=== PATIENT | male | born 1990 | race Two or more races ===

== ENCOUNTER 2024-06-28 13:05 | Emergency (ER) | payer MEDICAID ==
[~2024-06-28] VITALS: Ht 175.3 cm; Wt 77.3 kg
[2024-06-28 13:25] VITALS: TEMP 98.1
[2024-06-28 16:21] VITALS: BP 129/83
[2024-06-28 16:55] VITALS: PULSE 102; RESP 18; O2SAT 98
== END 2024-06-28 17:53 | disposition home or self-care (01) ==
LOC: EMS 13:05
DX: F10.129 Alcohol abuse with intoxication, unspecified (principal); Y90.9 Presence of alcohol in blood, level not specified
CPT/HCPCS: 99283; Z7502

== ENCOUNTER 2025-07-16 22:26 | Emergency (ER) | payer MEDICAID, OTHER ==
[~2025-07-16] VITALS: Ht 172.7 cm; Wt 77.3 kg
[2025-07-16 22:48] VITALS: TEMP 97.7
[2025-07-16 23:27] LABS: PLATELET COUNT (AUTO) 456 K/uL (150-450); RED BLOOD CELL COUNT(AUTO) 4.64 MIL/uL (4.50-5.90); RED CELL DISTRIBUTION WIDTH 17.5 % (11.5-14.5); WHITE BLOOD COUNT (AUTO) 7.3 K/uL (4.5-11.0)
[2025-07-16 23:38] LABS: CALCIUM, TOTAL 8.2 mg/dL (8.8-10.5); CREATININE 0.70 mg/dL (0.60-1.30); GLOMERULAR FILTR. RATE CALC > 60 mL/min (>60); GLUCOSE,RANDOM 121 mg/dL (70-110); SODIUM SERUM 147 mmol/L (136-145); UREA NITROGEN, BLOOD 6 mg/dL (7-18)
[2025-07-16 23:52] LABS: APPEARANCE,URINE CLEAR (CLEAR); GLUCOSE, URINE (UA) NEGATIVE (NEGATIVE); LEUKOCYTE ESTERASE ,URINE NEGATIVE (NEGATIVE); NITRATE,URINE NEGATIVE (NEGATIVE); OCCULT BLOOD,URINE NEGATIVE (NEGATIVE); PH,URINE DRUG SCREEN 5.5 (5.0-8.0); SPECIFIC GRAVITIY, URINE 1.005 (1.003-1.030)
[2025-07-16 23:58] LABS: AMPHET/METH SCREEN,URINE NEGATIVE (NEGATIVE); BARBITURATE SCREEN, URINE NEGATIVE (NEGATIVE); CANNABINOID SCREEN,URINE NEGATIVE (NEGATIVE); COCAINE SCREEN,URINE NEGATIVE (NEGATIVE); METHADONE SCREEN, URINE NEGATIVE (NEGATIVE)
[2025-07-17 00:03] LABS: ALCOHOL, URINE DRUG SCREEN POSITIVE (NEGATIVE)
[2025-07-17] MEDS: ZIPRASIDONE MESYLATE 20 MG/VIAL IM ONE ×2 (01:44→02:15)
[2025-07-17 03:42] LABS: COVID AG,FIA SOURCE NASAL SWAB
[2025-07-17 04:11] LABS: SARS-COV2 (COVID) ANTIGEN,FIA Negative (Negative)
[2025-07-17 05:45] VITALS: BP 112/58; PULSE 116; RESP 16; O2SAT 95
[2025-07-17] MEDS: SODIUM CHLORIDE 0.9% 1,000 ML IV ONE (05:57)
== END 2025-07-17 08:25 | disposition home or self-care (01) ==
LOC: EMS 23:34
DX: F10.129 Alcohol abuse with intoxication, unspecified (principal); Z20.822 Contact with and (suspected) exposure to COVID-19; Z79.899 Other long term (current) drug therapy; Y90.8 Blood alcohol level of 240 mg/100 ml or more
CPT/HCPCS: 99291; 87426; 80048; 81003; 85025; 36415; 80307; 96360; 96372; G0480; J3486; J7030

== ENCOUNTER 2025-10-01 12:15 | Inpatient (IN) | payer SELFPAY ==
[~2025-10-01] VITALS: Ht 175.3 cm; Wt 68.1 kg
[2025-10-01 12:42] LABS: PLATELET COUNT (AUTO) 415 K/uL (150-450); RED BLOOD CELL COUNT(AUTO) 5.00 MIL/uL (4.50-5.90); RED CELL DISTRIBUTION WIDTH 16.7 % (11.5-14.5); WHITE BLOOD COUNT (AUTO) 9.6 K/uL (4.5-11.0)
[2025-10-01 12:51] LABS: CALCIUM, TOTAL 7.8 mg/dL (8.8-10.5); CREATININE 0.92 mg/dL (0.60-1.30); GLOMERULAR FILTR. RATE CALC > 60 mL/min (>60); GLUCOSE,RANDOM 133 mg/dL (70-110); SODIUM SERUM 147 mmol/L (136-145); UREA NITROGEN, BLOOD 14 mg/dL (7-18)
[2025-10-01 13:04] LABS: ALCOHOL, BLOOD (SERUM) 541 mg/dL (0-10)
[2025-10-01 13:26] LABS: ASPARTATE AMINOTRANSFERASE 36 U/L (15-37); TOTAL PROTEIN, SERUM 7.9 g/dL (6.4-8.2)
[2025-10-01] MEDS ORDERED: ONDANSETRON HCL 4 MG/2 ML VIAL IVP PRN (13:30)
[2025-10-01 15:15] VITALS: BP 127/90; PULSE 115; RESP 18; TEMP 97.7; O2SAT 94
[2025-10-01] MEDS: 1: MAGNESIUM SULFATE 2 GM, MVI, ADULT NO.1 WITH VIT K 10 ML, THIAMINE 100 MG, FOLIC ACID IV SCH (15:32)
[2025-10-01] MEDS: HEPARIN SODIUM,PORCINE 5,000 UNITS/ML VIAL SQ SCH (15:33)
[2025-10-01 16:22] VITALS: BP 120/82; PULSE 128; RESP 18; TEMP 97.5; O2SAT 94
[2025-10-01] MEDS ORDERED: DOCUSATE SODIUM 100 MG CAPSULE PO SCH (21:00)
== END 2025-10-01 20:40 | disposition left against medical advice (07) | DRG 92 ==
LOC: EMS 12:15 → EDH 13:27 → 5N 15:23
PROVIDERS: ADMIT Internal Medicine; ATTEND Internal Medicine
DX: G92.9 Unspecified toxic encephalopathy (principal); E87.0 Hyperosmolality and hypernatremia; R65.10 Systemic inflammatory response syndrome (SIRS) of non-infectious origin without acute organ dysfunction; F10.229 Alcohol dependence with intoxication, unspecified; R32 Unspecified urinary incontinence; Z53.29 Procedure and treatment not carried out because of patient's decision for other reasons
CPT/HCPCS: 70450; 71045; 80048; 80076; 82140; 85025; 93005; 99285; G0480; J3411; J3475; J3490; J7030; J7060; 36415-L1; 36415-TC